=== PATIENT | female | born 1990 | race Caucasian/White ===

== ENCOUNTER 2020-05-21 10:46 | Emergency (ER) | payer OTHER ==
[~2020-05-21] VITALS: Ht 160 cm; Wt 86.4 kg
[2020-05-21 11:20] VITALS: TEMP 98.4
[2020-05-21] MEDS ORDERED: ZOFRAN 4MG T4 MG/TAB PO (12:19)
[2020-05-21 12:48] VITALS: BP 120/90; PULSE 68
== END 2020-05-21 12:48 | disposition home or self-care (01) ==
LOC: COL.ER 10:46
DX: S06.0X0A Concussion without loss of consciousness, initial encounter (principal); W22.8XXA Striking against or struck by other objects, initial encounter; Y93.G3 Activity, cooking and baking; Y99.0 Civilian activity done for income or pay

== ENCOUNTER 2020-07-11 14:17 | Outpatient (RCR) | payer OTHER ==
[~2020-07-11 14:17] MED LIST: ZOFRAN 4MG T4 MG/TAB PO
== END 2020-08-27 07:30 | disposition home or self-care (01) ==
LOC: WSOH 14:17
DX: S00.80XA Unspecified superficial injury of other part of head, initial encounter (principal); F07.81 Postconcussional syndrome; Z98.890 Other specified postprocedural states; Y99.0 Civilian activity done for income or pay